=== PATIENT | male | born 1955 | race Caucasian/White ===

== ENCOUNTER → 2017-02-27 | Outpatient (CLI) | payer BC ==
--- NOTE | 2017-02-27 11:51 | PN ---
DATE OF SERVICE: 02/27/17 61 -year-old gentleman has been followed in the sleep center for treatment of severe obstructive sleep apnea/hypopnea syndrome. Apnea/ hypopnea index by results of previous study 2.9. He is on treatment with CPAP at 12 cm water. He is using equipment every night for the whole night. According to the patient he does not snore and does not have sleepiness during the day. [place] sleep scale is 4. I checked the patients CPAP unit. It showed that the patient uses it every night, 30 out of 30 nights more than 4 hours. Average usage is 8.5 hours. Then I could see for at least six months. I could see that for one year period over time. Unfortunately machine does not show me apnea/hypopnea index while the patient using CPAP equipment. Medications are: 1. Atenolol. 2. Synthroid. 3. Lipitor. 4. Xanax on a prn basis. 5. Prevacid. 6. Cozaar. 7. AndroGel. PHYSICAL EXAM: GENERAL: A pleasant patient without any distress. VITAL SIGNS: BP 130/66, HR 50, RR 16, height 5 feet 9 inches, weight 231, body mass index 34.1. neck 19 inches in circumference. Temp 97.4, oxygen saturation on room air 96%. HEENT: PERRLA, EOMI. Evaluation of oropharynx shows extremely low position of soft palate. Tongue protrudes midline. NECK: Supple. No JVD. Thyroid is not palpable. LUNGS: Clear to auscultation and percussion. Good air exchange. No wheezing or rhonchi. HEART: S1, S2 regular. No murmurs, gallops or rubs. ABDOMEN: Soft, obese. Nontender. Bowel sounds are present. No organomegaly appreciated. Small scar on the anterior part of the side of the chest after lung surgery. EXTREMITIES: No clubbing or cyanosis. COIL SPRING ASSEMBLER: Awake, alert and oriented times three. Cranial nerves 2 to 7 intact. There is no fasciculation or atrophy noted. No focal deficits observed. IMPRESSION: 1. Severe obstructive sleep apnea/hypopnea syndrome. The patient demonstrated 100% compliance with treatment benefitting from treatment. 2. Obesity, BMI 34.1. The patient lost weight since previous visit around 14 pounds. 3. Hypertension. 4. Hypothyroidism. 5. Acid reflux. 6. History of depression. 7. History of right lung CA treated surgically about five years ago. PLAN: 1. The patient will continue to use CPAP equipment every night for the whole night. 2. We will try to get a new CPAP unit which will show apnea/hypopnea index. The patient is a airplane pilot commercial. 3. Continue losing weight. 4. Sleep hygiene with regular time in bed for at least 7 hours. 5. No driving if patient feels any sleepiness. The patient is aware of civil and criminal liability for unsafe driving. 6. Prescription for all necessary CPAP supplies including mask, tubes, filters. Thank you very much for allowing me to participate in the management of your patient. Sincerely, Seth French MD, PhD, FAASM Diplomat of [employer]. Sleep Medicine Board by [employer] Shipbuilding Draftsperson [facility]
== END ==
LOC: SLEEP 10:16
PROVIDERS: ATTEND Internal Medicine
DX: G47.33 Obstructive sleep apnea (adult) (pediatric) (principal); E66.9 Obesity, unspecified; E03.9 Hypothyroidism, unspecified; I10 Essential (primary) hypertension; K21.9 Gastro-esophageal reflux disease without esophagitis; F32.9 Major depressive disorder, single episode, unspecified; Z68.34 Body mass index [BMI] 34.0-34.9, adult; Z79.899 Other long term (current) drug therapy

== ENCOUNTER → 2020-11-14 | Outpatient (CLI) | payer BC ==
[2020-11-15 01:54] LABS: Albumin 4.3 g/dL (3.80-4.90)
[2020-11-15 02:03] LABS: Estradiol 23.6 pg/mL; Follicle Stimulating Hormone 21.2 mIU/mL; Luteinizing Hormone 22.5 mIU/mL; T4, Free (Free Thyroxine) 1.3 ng/dL (0.80-1.80)
== END | disposition home or self-care (01) ==
LOC: LABWHC1 08:51
PROVIDERS: ATTEND Urology
DX: R97.20 Elevated prostate specific antigen [PSA] (principal)
CPT/HCPCS: 36415; 82040; 82670; 82947; 83001; 83002; 84146; 84153; 84270; 84403; 84439; 84443; 84479

== ENCOUNTER → 2021-09-27 | Outpatient (CLI) | payer BC | END | disposition home or self-care (01) | LOC: LABWHC1 10:31 | DX: Z53.9 Procedure and treatment not carried out, unspecified reason (principal) ==

== ENCOUNTER → 2022-12-10 | Outpatient (CLI) | payer MEDICARE ==
--- NOTE | 2022-12-11 09:28 | CT ---
CT CHEST FOR PULMONARY EMBOLISM. EXAMINATION TYPE: CT angio chest DATE OF EXAM: 12/10/2022 INDICATION: High blood pressure, assess aorta CT DLP: 1124.1 mGycm, Automated exposure control for dose reduction was used. CONTRAST: Patient injected with 80 cc mL of Isovue 370. COMPARISON: None TECHNIQUE: CT of the chest is performed on a spiral scan at 2 mm thick sections. Study is performed with intravenous contrast timed for evaluation for thoracic aorta. This may limit additional portions of the evaluation. Study is performed without and with intravenous contrast. FINDINGS: There is a three-vessel arch. The aorta at the aortic root is 3.2 cm. The ascending thoracic aorta a t the level of the main pulmonary artery is 3.4 cm. Main pulmonary artery the bifurcation is 3.2 cm. Transverse dimension of the aortic arch is 2.7 cm. Descending thoracic aorta at the diaphragm 2.7 cm. No aneurysm or dissection is evident. The renal arteries and superior mesenteric artery and celiac a xis appear patent. There is vascular calcification present. Coronary artery calcification is present. No mediastinal or hilar adenopathy enlarged by CT criteria is evident. There is a large consolidation in the anterior right upper lobe. Correlate for pneumonia. Underlying mass is not excluded and follow-up is recommended. Limited CT section through the upper abdomen are unremarkable. IMPRESSIONS: 1. No aortic dissection or aneurysm. 2. Anterior right upper lobe infiltrate or fibrosis. Underlying mass is not excluded. Follow-up is re commended. 2. Vascular calcification including coronary vessels.
== END | disposition home or self-care (01) ==
LOC: RADCTMAIN 13:28
PROVIDERS: ATTEND Internal Medicine Interventional Cardiology
DX: I25.10 Atherosclerotic heart disease of native coronary artery without angina pectoris (principal)
CPT/HCPCS: 82565; 84520; 71275; 36415; Q9967

== ENCOUNTER → 2023-05-09 | Outpatient (CLI) | payer MEDICARE ==
--- NOTE | 2023-05-09 09:29 | CT ---
EXAMINATION TYPE: CT chest w con CT DLP: 558.9 mGycm, Automated exposure control for dose reduction was used. DATE OF EXAM: 05/09/2023 8:28 AM COMPARISON: 12/10/2022. CLINICAL INDICATION:Male, 67 years old with history of R91.8 Abn finding of lung field; PHH, Abnormal findings on lung field, hx lung ca TECHNIQUE: Multiple axial images were obtained through the chest. Sagittal and coronal reformats were created for review. Contrast used:100 mL of Isovue 300 with IV Contrast (None if empty) Oral contrast used: (None if empty) FINDINGS: LUNGS/ PLEURA: Worsening interstitial opacities within the anterior lung of the right middle lobe wit h suspected removal of the right upper lobe. Trace bilateral pleural effusions right greater than lef t. AIRWAY: Patent and unremarkable. HEART: Size within normal limits. Moderate to severe atherosclerotic arterial vasculature. MEDIASTINUM: No gross evidence of adenopathy. VASCULATURE: No aortic aneurysm. There is narrowing of the history of vena cava with a slitlike appe arance. MUSCULOSKELETAL: No acute osseous abnormalities SOFT TISSUES/LYMPH NODES: Unremarkable. LOWER NECK: No significant findings. UPPER ABDOMEN: No significant findings. IMPRESSION: 1. Worsening interstitial opacities within the right middle lobe with surgically absent right upper lung. Correlate for infectious/inflammatory process. Underlying mass remains not entirely excluded ho wever felt to be less likely since there is no focal consolidation in this region. 2. Narrowing of the superior vena cava with slitlike appearance. No adjacent mass identified. Relate d with patient's volume status. 3. Mild coronary atherosclerosis which is severe.
== END | disposition home or self-care (01) ==
LOC: RADCTMAIN 07:53
PROVIDERS: ATTEND Family Medicine
DX: I25.10 Atherosclerotic heart disease of native coronary artery without angina pectoris (principal); R91.8 Other nonspecific abnormal finding of lung field
CPT/HCPCS: 71260; Q9967

== ENCOUNTER 2023-05-27 05:54 | Day surgery (SDC) | payer MEDICARE ==
[2023-05-22 11:08] VITALS: BMI 30.8
[2023-05-27] MEDS ORDERED: DEXAMETHASONE SOD PHOSPHATE 4 MG/ML 1 ML VIAL IV ONE (06:00)
[2023-05-27] MEDS ORDERED: LACTATED RINGERS 1,000 ML IV SCH (06:00)
[2023-05-27] MEDS ORDERED: ONDANSETRON 4 MG/2 ML VIAL IVP ONE (06:00)
[2023-05-27] MEDS ORDERED: LIDOCAINE 1% (10MG/ML) FOR IV START INTRADERMA PRN (06:00)
[2023-05-27 06:42] VITALS: TEMP 98
[2023-05-27] MEDS ORDERED: LIDOCAINE 1% INJ 10MG/ML (20 ML MDV) ONE (07:00)
[2023-05-27] MEDS ORDERED: fentaNYL (PF) 50 MCG/ML 2 ML AMP ONE (07:00)
[2023-05-27] MEDS ORDERED: PROPOFOL 10 MG/ML 20 ML VIAL IV ONE (07:00)
[2023-05-27] MEDS ORDERED: HYDROmorphone 0.5 MG/0.5 ML SYRINGE IVP PRN (07:00)
[2023-05-27] MEDS ORDERED: MIDAZOLAM 2 MG/2 ML VIAL ONE (07:00)
[2023-05-27] MEDS ORDERED: MIDAZOLAM 2 MG/2 ML VIAL IV PRN (07:00)
--- NOTE | 2023-05-27 07:28 | P.PCN ---
Date of Procedure: 05/27/23 Procedure(s) Performed: Brief history: Patient is a pleasant 67-year-old white male scheduled for an elective upper endoscopy as well as colonoscopy as a part of evaluation of throat irritation/GERD/screening for colon cancer Procedure performed: Esophagogastroduodenoscopy with biopsy Colonoscopy with snare polypectomy Preoperative diagnosis: GERD/throat irritation Screening for colon cancer Anesthesia: MAC Procedure: After informed consent was obtained from the patient was brought into the endoscopy unit and IV sedation was administered by anesthesia under continuous monitoring. Initially upper endoscopy was done. The Olympus GF 160 video endoscope was inserted inserted into the mouth and esophagus intubated without any difficulty and was gradually advanced into the stomach and duodenum and carefully examined. The bulb and second part of the duodenum appeared normal. The scope was then withdrawn into the stomach adequately insufflated with air and upon careful examination the antrum had mild linear areas of erythema consistent with gastritis and biopsies were done from this area. Mucosa of the body, cardia and fundus appeared normal. The scope was then withdrawn into the esophagus. The GE junction was located at 40 cm to the incisors. It appeared regular with no erythema erosions or ulcerations. Biopsies were done from the distal esophagus. Rest of the esophagus appeared normal. Patient tolerated the procedure well. At this time the patient continued to remain sedation. Initial digital rectal examination was normal. Olympus CF 160 video colonoscope was then inserted into the rectum and gradually advanced to the cecum without any difficulty. Careful examination was performed as the scope was gradually being withdrawn. The prep was fair.. The cecum, appeared normal. In the setting colon there was a 5 mm polyp that was removed by snare polypectomy. Rest of the ascending colon, transverse colon, descending colon, sigmoid colon and rectum appeared normal. Retroflexion was performed in the rectum and no lesions were noted. Patient tolerated the procedure well. Impression: 1. Upper endoscopy revealed mild antral gastritis but no episodes of esophagitis 2. Colonoscopy revealed 5 immediately colon polyp status post polypectomy and the rest of the colon appeared normal Recommendations: Findings of this examination were discussed with the patient as well as his family. He was advised to follow with the biopsy results. If the biopsy of the colon polyp serous adenoma he can have a repeat colonoscopy in 5 years.
[2023-05-27 07:59] VITALS: BP 135/79; PULSE 60; RESP 16
== END 2023-05-27 08:26 | disposition home or self-care (01) ==
LOC: ORWHC2ENDO 05:54
PROVIDERS: ATTEND Internal Medicine Gastroenterology
DX: Z12.11 Encounter for screening for malignant neoplasm of colon (principal); K63.5 Polyp of colon; K31.89 Other diseases of stomach and duodenum; K21.9 Gastro-esophageal reflux disease without esophagitis; K29.50 Unspecified chronic gastritis without bleeding; I10 Essential (primary) hypertension; E78.5 Hyperlipidemia, unspecified; G47.33 Obstructive sleep apnea (adult) (pediatric); E03.9 Hypothyroidism, unspecified; F17.210 Nicotine dependence, cigarettes, uncomplicated; Z79.890 Hormone replacement therapy; Z79.899 Other long term (current) drug therapy
CPT/HCPCS: 88305; 88312; 88342; 88341; 45385; 43239; J2250; J2001; J3010; J2704

== ENCOUNTER → 2023-10-22 | Outpatient (CLI) | payer MEDICARE | END | disposition home or self-care (01) | LOC: LABWHC1 12:17 | PROVIDERS: ATTEND Physician Assistant | DX: C61 Malignant neoplasm of prostate (principal) | CPT/HCPCS: 36415; 84153 ==

== ENCOUNTER → 2023-12-17 | Outpatient (CLI) | payer MEDICARE ==
[2023-12-17 09:47] LABS: African American GFR (CKD) 89 (>60 ml/min/1.73 sqM); Blood Urea Nitrogen 19 mg/dL (9-20); Non-African American GFR(CKD) 77 (>60 ml/min/1.73 sqM)
--- NOTE | 2023-12-19 10:48 | CT ---
EXAMINATION TYPE: CT chest w con CT DLP: 660.1 mGycm, Automated exposure control for dose reduction was used. DATE OF EXAM: 12/17/2023 10:28 AM COMPARISON: Chest radiograph from same day. Multiple CTs of the chest with most recent on . CLINICAL INDICATION:Male, 68 years old with history of C34.90 Lung cancer; PHH, FOLLOW UP LUNG CANCER . HX OF LUNG, PROSTATE CANCER AND LOBECTOMY. TECHNIQUE: Multiple axial images were obtained through the chest. Sagittal and coronal reformats were created for review. Contrast used:100ml mL of Isovue 300 with IV Contrast (None if empty) Oral contrast used: (None if empty) FINDINGS: LUNGS/ PLEURA: Moderately pronounced interstitial fibrosis, likely chronic scar from radiation or oth er insult, correlating with history, within the anterior lung of the right middle lobe with suspected removal of the right upper lobe. . Remainder of right lung and entire left lung clear. No pleural effusions. AIRWAY: Patent and unremarkable. HEART: Size within normal limits. Moderately pronounced calcific coronary artery disease MEDIASTINUM: No gross evidence of adenopathy. VASCULATURE: No aortic aneurysm. MUSCULOSKELETAL: No acute osseous abnormalities SOFT TISSUES/LYMPH NODES: Unremarkable. LOWER NECK: No significant findings. UPPER ABDOMEN: No significant findings. IMPRESSION: Posttreatment changes right middle lobe. No findings worrisome for recurrent lung cancer Follow up recommendations for incidental pulmonary nodules, if there are any, are per [place]?vivi Rodriguez er[place] [employer] or [employer]. https://radiopaedia.org/articles/iydwipruuc-[email or web address]?lang=us
== END | disposition home or self-care (01) ==
LOC: RADCTMAIN 09:05
PROVIDERS: ATTEND Internal Medicine Critical Care Medicine
DX: C34.90 Malignant neoplasm of unspecified part of unspecified bronchus or lung (principal); Z85.46 Personal history of malignant neoplasm of prostate; Z90.2 Acquired absence of lung [part of]
CPT/HCPCS: 71260; 82565; 84520

== ENCOUNTER 2024-03-05 12:55 | Inpatient (IN) | payer MEDICARE ==
[~2024-03-05 12:55] MED LIST: ALPRAZolam 0.5 MG TAB ONE; ASPIRIN 81 MG ONE; HEPARIN SODIUM,PORCINE 10,000 UNIT/ML 1 ML VIAL ONE; LIDOCAINE 1% INJ 10MG/ML (20 ML MDV) ONE; MIDAZOLAM 2 MG/2 ML VIAL ONE; SODIUM CHLORIDE 0.9% 1,000 ML BAG ONE
[2024-03-05] MEDS: IOPAMIDOL-370 100ML BTL INJ ONE (12:55)
--- NOTE | 2024-04-09 15:04 | CC ---
CARDIAC CATHETERIZATION REPORT PROCEDURES PERFORMED: 1. Aortogram with runoff. 2. Gradient measurement across the right common iliac artery. 3. Ultrasound-guided access of the right common femoral artery. INDICATION: Intermittent claudication arterial duplex study. COMPLICATIONS: None. LEVEL OF SEDATION: Moderate with sedation length of 18 minutes. PROCEDURE DESCRIPTION: After obtaining an informed consent, the patient was brought to cardiac greens laborer. The right common femoral artery was cannulated using micropuncture technique under ultrasound guidance, the micropuncture wire passed easily, then I placed a 5-[place]izen [place] 11 cm sheath. An aortogram with runoff was performed using a power injection. After that I did a gradient measurement across the right common iliac artery. Selective peripheral angiogram. 1. The aorta is calcified with mild disease only. 2. Common iliac arteries. The right and left common iliac arteries are calcified with otrc-bw-kixyvnmu disease. 3. External iliac arteries appeared to be calcified with jlgn-ti-gcohbewu disease as well. 4. Common femoral arteries. The right common femoral artery is occluded and the extent to the bifurcation of SFA and profunda. The left common femoral artery appeared to have mild disease only. 5. Both SFA appeared to have ypiu-pn-xwwsvaim diffuse disease. 6. The arteries below the knee were well visualized but there is at least 2 vessel runoff below the knee bilaterally. CONCLUSION: 1. Occluded right common femoral artery with occlusion extent to the SFA/profunda bifurcation. 2. Postprocedure management, I would advise the patient to undergo right femoral endarterectomy. MMODL / IJN: [id number] /
== END 2024-03-05 19:30 | disposition home or self-care (01) | DRG 301 ==
LOC: OR 12:55 → 6NMEDSUR 12:56 → OR 19:30
PROVIDERS: ADMIT Internal Medicine Interventional Cardiology; ATTEND Internal Medicine Interventional Cardiology
PROC: B41D1ZZ Fluoroscopy of Aorta and Bilateral Lower Extremity Arteries using Low Osmolar Contrast (ICD-10-PCS; principal; 2024-03-05 12:20)
PROC: B4101ZZ Fluoroscopy of Abdominal Aorta using Low Osmolar Contrast (ICD-10-PCS; principal; 2024-03-05 12:20)
DX: I70.213 Atherosclerosis of native arteries of extremities with intermittent claudication, bilateral legs (principal); I25.10 Atherosclerotic heart disease of native coronary artery without angina pectoris; E78.5 Hyperlipidemia, unspecified; I25.5 Ischemic cardiomyopathy; I70.0 Atherosclerosis of aorta; E66.9 Obesity, unspecified; F17.210 Nicotine dependence, cigarettes, uncomplicated; Z79.82 Long term (current) use of aspirin; I25.2 Old myocardial infarction; Z95.5 Presence of coronary angioplasty implant and graft; Z85.118 Personal history of other malignant neoplasm of bronchus and lung; Z90.2 Acquired absence of lung [part of]; Z79.890 Hormone replacement therapy; Z79.84 Long term (current) use of oral hypoglycemic drugs; Z79.899 Other long term (current) drug therapy; Z85.46 Personal history of malignant neoplasm of prostate
CPT/HCPCS: 36200; 75625; 75716

== ENCOUNTER → 2024-04-05 | Outpatient (CLI) | payer MEDICARE ==
[2024-04-05 21:24] LABS: Basophils # (A) 0.05 X 10*3/uL (0.00-0.10); Basophils % (A) 0.6 %; Eosinophils # (A) 0.16 X 10*3/uL (0.04-0.35); Eosinophils % (A) 1.8 %; HCT 44.7 % (39.6-50.0); HGB 14.8 g/dL (13.0-17.0); Lymphocytes # (A) 1.64 X 10*3/uL (0.90-5.00); Lymphocytes % (A) 18.5 %; MCH 31.7 pg (27.0-32.0); MCHC 33.1 g/dL (32.0-37.0); MCV 95.7 FL (80.0-97.0); Mean Platelet Volume 10.1 FL (9.5-12.2); Monocytes # (A) 0.62 X 10*3/uL (0.20-1.00); NRBC Per 100 WBC 0 X 10*3/uL (0.00-0.01); Neutrophils # (A) 6.37 X 10*3/uL (1.80-7.70); Neutrophils % (A) 71.6 %; Platelet Count 239 X 10*3/uL (140-440); RBC 4.67 X 10*6/uL (4.40-5.60); RDW 13.8 % (11.5-14.5); WBC 8.88 X 10*3/uL (4.50-10.00)
== END | disposition home or self-care (01) ==
LOC: LABPAT 13:02
PROVIDERS: ATTEND Surgery
DX: Z01.818 Encounter for other preprocedural examination (principal)
CPT/HCPCS: 36415; 85025; 86850; 86900; 86901

== ENCOUNTER 2024-04-12 09:36 | Inpatient (IN) | payer MEDICARE ==
[2024-04-12] MEDS ORDERED: LIDOCAINE 1% (10MG/ML) FOR IV START INTRADERMA PRN (09:57)
[2024-04-12] MEDS ORDERED: HYDROmorphone 0.5 MG/0.5 ML SYRINGE IVP PRN (09:57)
[2024-04-12] MEDS ORDERED: droPERidol 5 MG/2 ML VIAL IVP PRN (09:57)
[2024-04-12] MEDS: IV FLUID CONTINUATION 1,000 ML IV ONE ×2 (10:15)
[2024-04-12] MEDS: DEXAMETHASONE SOD PHOSPHATE 4 MG/ML 1 ML VIAL IV ONE (10:24)
[2024-04-12] MEDS: ONDANSETRON 4 MG/2 ML VIAL IVP ONE (10:24)
[2024-04-12] MEDS: LACTATED RINGERS 1,000 ML IV SCH (10:56)
[2024-04-12 11:11] LABS: Glucose,Whole Blood 100 mg/dL (70-110)
[2024-04-12] MEDS ORDERED: fentaNYL (PF) 50 MCG/ML 2 ML AMP ONE (12:49)
[2024-04-12] MEDS ORDERED: ROCURONIUM 10 MG/ML (5 ML VIAL) IV ONE (12:49)
[2024-04-12] MEDS ORDERED: NEOSTIGMINE 1 MG/ML 10 ML VIAL ONE (12:49)
[2024-04-12] MEDS ORDERED: HYDROmorphone (PF) 1 MG/ML ONE (12:49)
[2024-04-12] MEDS ORDERED: KETAMINE HCL IN 0.9 % NACL 50 MG/5 ML SYRINGE ONE (12:49)
[2024-04-12] MEDS ORDERED: LIDOCAINE 1% INJ 10MG/ML (20 ML MDV) ONE (12:49)
[2024-04-12] MEDS ORDERED: PROPOFOL 10 MG/ML 20 ML VIAL IV ONE (12:49)
[2024-04-12] MEDS ORDERED: GLYCOPYRROLATE 0.2 MG/ML 2 ML VIAL ONE (12:49)
[2024-04-12] MEDS ORDERED: PROTAMINE SULFATE 10 MG/ML 5 ML VIAL ONE (12:49)
[2024-04-12] MEDS ORDERED: SUCCINYLCHOLINE CHLORIDE 200 MG/10 ML VIAL IV ONE (12:49)
[2024-04-12] MEDS ORDERED: DEXAMETHASONE SOD PHOSPHATE 10 MG/ML 1 ML VIAL ONE (12:49)
[2024-04-12] MEDS ORDERED: MIDAZOLAM 2 MG/2 ML VIAL ONE (12:49)
[2024-04-12] MEDS: ceFAZolin 2 GM in SODIUM CHLORIDE 0.9% 500 ML 500 ML IRRIGATION ONE (13:23)
[2024-04-12] MEDS: THROMBIN (BOVINE) 5,000 UNIT VIAL TOPICAL ONE (13:23)
[2024-04-12] MEDS: HEPARIN SODIUM,PORCINE 10,000 UNIT in SODIUM CHLORIDE 0.9% 1,000 ML IRRIGATION ONE (13:23)
[2024-04-12] MEDS: LACTATED RINGERS 1,000 ML IV ONE (14:04)
[2024-04-12] MEDS ORDERED: ONDANSETRON 4 MG/2 ML VIAL IVP PRN (15:15)
[2024-04-12] MEDS ORDERED: MORPHINE SULFATE 2 MG/ML SYRINGE IVP PRN (15:15)
[2024-04-12] MEDS ORDERED: HYDROcodone/APAP 5-325MG 1 EACH TAB PO PRN (15:15)
--- NOTE | 2024-04-12 15:24 | P.OP ---
Date of Procedure: 04/12/24 Preoperative Diagnosis: Right common femoral artery occlusion, claudication [place] classification 3 Postoperative Diagnosis: Same Procedure(s) Performed: Right common femoral, profundus femoris and superficial femoral artery endarterectomy with patch angioplasty Anesthesia: BON Surgeon: Servando Rivers Melter Operator #1: Juan Vaughan Estimated Blood Loss (ml): 50 Pathology: other (Femoral plaque) Condition: stable Disposition: PACU Indications for Procedure: 68-year-old gentleman with history of right lower extremity claudication with decreased ABIs less than 0.7 who underwent aortogram with runoff which demonstrated right common femoral artery occlusion. He presents today for femoral endarterectomy and patch angioplasty. Description of Procedure: Operative narrative: After written and informed consent was obtained from the patient all risks benefits and complications were described the patient is brought to the operative suite and laid in a supine position. The area of the abdomen, right lower extremity was prepped and draped in usual sterile fashion after appropriate anesthetic was performed per the anesthesiologist. A timeout was performed in normal fashion. Antibiotics were administered prior to in cision. A oblique incision was created at the right groin and dissection was carried down to the common femoral artery. The common femoral, superficial femoral and profundus femoris arteries were dissected free in a circumferential manner and controlled with vessel loops. Patient was then administered heparin. Arteriotomy was then created with 11 blade scalpel and extended with Pott Varma scissors. Endarterectomy was then performed with [place] of the common femoral, profundus femoris and superficial femoral artery. There was good backbleeding noted from the profundus and superficial femoral artery once endarterectomy was completed. Patch angioplasty was then performed with 6-0 Prolene suture in a running fashion and a bovine pericardial patch. Prior to last sutures being placed backbleeding was once again assessed which was adequate and proximal control was released revealing good pulsatile blood flow. Final sutures were placed and good pulsatile blood flow was noted. The areas were then copiously irrigated with antibiotic solution. The incision was then closed in a multilayer fashion after hemostasis was assured with Gelfoam and thrombin and the skin was then cleansed and dressings were placed. The patient tolerated procedure well and had a palpable PT pulse at the conclusion of the procedure and was sent to PACU for recovery.
[2024-04-12 17:33] VITALS: RESP 18
--- NOTE | 2024-04-12 21:52 | P.CONS ---
History of Present Illness - Reason for Consult Consult date: 04/12/24 Medical management Requesting physician: Servando Rivers - History of Present Illness Patient is a 68-year-old male who has been admitted for an elective right common femoral, profunda femoris and superficial femoral artery endarterectomy with patch angioplasty dont today. He is doing well after the surgery. He mentions having low urine stream due to prostate cancer that he is following up at [facility]. Denies fever, chills, nausea, vomiting, abdominal pain, chest pain, shortness of breath, cough, chest pain, palpitation. Vitals: T97 F, P 71 bpm, RR 18, BP 121/76, O2 sat 98% on room air Review of systems: Pertinent positives and negatives as discussed in HPI, a complete review of systems was performed and all other systems are negative. PMH: Hyperlipidemia, CAD, GERD, Hypothyroidism, Hypertension, Prostate cancer, Lung cancer Physical examination: Vital signs reviewed General: non toxic, no distress, appears at stated age, obese, patient not cooperative and sounds frustrated, asked to keep the interview and exam brief as he wanted to sleep Derm: no unusual rashes/lesions, warm Head: atraumatic, normocephalic, symmetric Eyes: anicteric sclera ENT: Nose and ears atraumatic Mouth: no lip lesion, mucus membranes moist Cardiovascular: S1S2 reg, no murmur Lungs: CTA bilateral, no rhonchi, no rales, no accessory muscle use Ext: no gross muscle atrophy, no contractures, Neuro: CN II-XI grossly intact, no gross focal neuro deficits Psych: Alert, oriented, appropriate affect Assessment/Plan: Patient is a 68-year-old male admitted for endarterectomy and we have been consulted for medical management. #. History of coronary artery disease Continue with aspirin 81 mg p.o. daily, clopidogrel 75 mg p.o. daily, metoprolol 25 mg p.o. at bedtime and empagliflozin 10 mg p.o. daily. #. Hyperlipidemia Continue with 80 mg p.o. at bedtime and ezetimibe 10 mg p.o. every 48 hours #. gastroesophageal reflux disease Continue with lansoprazole 30 mg p.o. daily #. Hypothyroidism Continue with 200 mcg p.o. daily #. Hypertension Continue losartan 100 mg p.o. at bedtime #. severe PAD s/p right common femoral, profunda femoris and superficial femoral artery endarterectomy with patch angioplasty POD # zero management per primary surgical team F:LR at 20 ml/hr E:Replete as required N:Heart healthy diet A:Deferred to surgery DVT prophylaxis: Deferred to surgery Past Medical History Past Medical History: Cancer, GERD/Reflux, Hyperlipidemia, Hypertension, Myocardial Infarction ([place]), Prostate Disorder, Sleep Apnea/CPAP/BIPAP, Thyroid Disorder Additional Past Medical History / Comment(s): lung cancer , cpap, blockage to rt leg, BPH, watching prostate cancer and PSA. Takes jardiance for his heart Last Myocardial Infarction Date:: 1998 History of Any Multi-Drug Resistant Organisms: None Reported Additional Past Surgical History / Comment(s): lobectomy right, colonscopy Past Anesthesia/Blood Transfusion Reactions: No Reported Reaction Additional Past Anesthesia/Blood Transfusion Reaction / Comm: no blood transfusion Smoking Status: Current some day smoker - Past Family History Father Family Medical History: Cancer, Coronary Artery Disease (CAD) Medications and Allergies Home Medications Medication Instructions Recorded Confirmed Type Atorvastatin [Lipitor] 80 mg PO HS 05/22/23 04/12/24 History Ezetimibe [Zetia] 10 mg PO Q48H 05/22/23 04/12/24 History Lansoprazole 30 mg PO DAILY 05/22/23 04/12/24 History Levothyroxine Sodium [Synthroid] 200 mcg PO DAILY 05/22/23 04/12/24 History Losartan [Cozaar] 100 mg PO HS 05/22/23 04/12/24 History Aspirin 81 mg PO DAILY 04/05/24 04/12/24 History Clopidogrel [Plavix] 75 mg PO DAILY 04/05/24 04/05/24 History Empagliflozin [Jardiance] 10 mg PO DAILY 04/05/24 04/12/24 History Ibuprofen [Motrin] 800 mg PO DIRECTED PRN 04/05/24 04/05/24 History Metoprolol Tartrate 25 mg PO HS 04/05/24 04/12/24 History Allergies Allergy/AdvReac Type Severity Reaction Status Date / Time No Known Allergies Allergy Verified 04/12/24 10:17 Physical Exam Vitals: Vital Signs Temp Pulse Pulse Resp BP BP BP 04/12/24 17:30 71 18 121/76 09/30/24 16:44 60 16 129/59 04/12/24 16:29 63 16 121/63 04/12/24 16:04 60 16 149/61 04/12/24 15:49 52 L 16 142/57 04/12/24 15:34 60 16 147/66 04/12/24 15:19 97 F L 100 16 149/66 04/12/24 09:55 97.4 F L 57 L 16 166/78 Pulse Ox 04/12/24 17:30 98 04/12/24 16:44 97 04/12/24 16:29 97 04/12/24 16:04 97 04/12/24 15:49 97 04/12/24 15:34 98 04/12/24 15:19 98 04/12/24 09:55 96 Intake and Output 04/12/24 04/12/24 04/12/24 06:59 14:59 22:59 Intake Total 1853 954 Output Total 400 250 Balance 1453 704 Intake: IV 1853 600 Oral 354 Output: Urine 350 250 Estimated Blood Loss 50 Other: Weight 102.5 kg Assessment and Plan Assessment: I have seen and evaluated the patient today. I Discussed the case with the resident and agree with the resident's findings I edited the assessment and plan as necessary as documented in the resident's note.
[2024-04-12] MEDS: EZETIMIBE 10 MG TAB PO SCH (22:25)
[2024-04-13 05:00] VITALS: TEMP 98.1
[2024-04-13] MEDS: LEVOTHYROXINE 100 MCG TAB PO SCH (06:28)
[2024-04-13] MEDS: PANTOPRAZOLE 40 MG TABLET PO SCH (06:28)
[2024-04-13 08:17] LABS: Basophils % (A) 0 %; Eosinophils # (A) 0.1 k/uL (0-0.7); Eosinophils % (A) 1 %; HGB 13.9 gm/dL (13.0-17.5); Lymphocytes # (A) 1.5 k/uL (1.0-4.8); Lymphocytes % (A) 10 %; MCH 32.1 pg (25.0-35.0); MCHC 33.1 g/dL (31.0-37.0); MCV 97.2 fL (80.0-100.0); Mean Platelet Volume 7.2; Monocytes # (A) 0.7 k/uL (0-1.0); Monocytes % (A) 5 %; Neutrophils # (A) 12.8 k/uL (1.3-7.7); Neutrophils % (A) 84 %; Platelet Count 239 k/uL (150-450); RBC 4.33 m/uL (4.30-5.90); RDW 13.6 % (11.5-15.5); WBC 15.3 k/uL (3.8-10.6)
[2024-04-13 08:29] LABS: African American GFR (CKD) 85 (>60 ml/min/1.73 sqM); Anion Gap 10 mmol/L; Blood Urea Nitrogen 18 mg/dL (9-20); Calcium 9.5 mg/dL (8.4-10.2); Carbon Dioxide 21 mmol/L (22-30); Chloride 108 mmol/L (98-107); Glucose 133 mg/dL (74-99); Non-African American GFR(CKD) 73 (>60 ml/min/1.73 sqM); Potassium 3.9 mmol/L (3.5-5.1); Sodium 139 mmol/L (137-145)
[2024-04-13] MEDS: CLOPIDOGREL 75 MG TAB PO SCH (08:59)
[2024-04-13] MEDS: ASPIRIN 81 MG PO SCH (08:59)
[2024-04-13] MEDS: DAPAGLIFLOZIN PROPANEDIOL 10 MG TABLET PO SCH (08:59)
--- NOTE | 2024-04-13 10:13 | P.DS ---
Providers Date of admission: 04/12/24 09:36 Expected date of discharge: 04/13/24 Attending physician: Servando Rivers DO Consults: 04/12/24 15:15 Consult Physician Routine Consulting Provider: Joshua Rojas Consult Reason/Comments: medical management Do you want consulting provider notified?: Yes Primary care physician: Denise Bassett MD Hospital Course: This is a pleasant 68-year-old male who was scheduled for elective outpatient revascularization. He is postop day #1 for right common femoral, profunda femoris and SFA endarterectomy with patch angioplasty. He is been up to the side of the bed, voiding without difficulty, and ambulating in the hallways. Pain is improved in the left lower extremity. No acute changes through the night. Patient has been afebrile with stable vital signs. Labs are unremarkable. Plan for discharge today. Discharge instructions reviewed with patient. Will go home with Pravena dressing to the right groin for 6 days. Exam General appearance: The patient is alert, oriented, appears in no acute distress. HET: Head is normocephalic and atraumatic. Pupils are equal and reactive. Neck: Supple. Heart: Regular. Lungs: Equal expansion, normal respiratory effort. Abdomen: Soft, nondistended. Extremities: Normal skin color and turgor. Right groin with Louise dressing in place with good suction. Bilateral lower extremities warm to the touch, left faint palpable PT and DP pulse. Neurological: No focal deficits. Strength and sensation are grossly intact. Assessment 1. 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 Claudication [place] classification 3 3. History of tobacco use Plan 1. Encourage ambulation 2. Keep Prevena dressing in place to right groin for 6 days 3. Smoking cessation 4. Continue current medications 5. Plan for discharge today with follow-up in 2 weeks The impression and plan of care has been dictated as directed. I performed a history and examination of this patient, discussed the same with the dictator. I agree with the dictator's note ,documented as a scribe. Any additional findings or plans will be noted. Procedures: Right common femoral, profundus femoris and superficial femoral artery endarterectomy with patch angioplasty Patient Condition at Discharge: Stable Plan - Discharge Summary Discharge Rx Participant: Yes New Discharge Prescriptions: Continue Losartan [Cozaar] 100 mg PO HS Lansoprazole 30 mg PO DAILY Aspirin 81 mg PO DAILY Ezetimibe [Zetia] 10 mg PO Q48H Atorvastatin [Lipitor] 80 mg PO HS Clopidogrel [Plavix] 75 mg PO DAILY Metoprolol Tartrate 25 mg PO HS Ibuprofen [Motrin] 800 mg PO DIRECTED PRN PRN Reason: Pain No Action Empagliflozin [Jardiance] 10 mg PO DAILY Levothyroxine Sodium [Synthroid] 200 mcg PO DAILY Discharge Medication List Atorvastatin [Lipitor] 80 mg PO HS 05/22/23 [History] Ezetimibe [Zetia] 10 mg PO Q48H 05/22/23 [History] Lansoprazole 30 mg PO DAILY 05/22/23 [History] Levothyroxine Sodium [Synthroid] 200 mcg PO DAILY 05/22/23 [History] Losartan [Cozaar] 100 mg PO HS 05/22/23 [History] Aspirin 81 mg PO DAILY 04/05/24 [History] Clopidogrel [Plavix] 75 mg PO DAILY 04/05/24 [History] Empagliflozin [Jardiance] 10 mg PO DAILY 04/05/24 [History] Ibuprofen [Motrin] 800 mg PO DIRECTED PRN 04/05/24 [History] Metoprolol Tartrate 25 mg PO HS 04/05/24 [History] Follow up Appointment(s)/Referral(s): Servando Rivers DO [STAFF PHYSICIAN] - 2 Weeks Denise Bassett MD [Primary Care Provider] - 1 Week Activity/Diet/Wound Care/Special Instructions: No driving for two weeks Avoid heavy lifting greater than 10 lbs , pushing, pulling, straining, flights of stairs for two weeks ok to shower tomorrow but no baths, pools, soaking in tubs to avoid risk of infection. signs of infection ie: fever, rash, drainage from incision site, swelling contact doctor or return to ER immediately. Heavy bleeding from incision site apply firm direct pressure and return to ER. Do not attempt to drive self. low sodium/low fat diet Smoking cessation Keep Louise dressing in place for 6 more days, may remove on 04/18/24 Discharge Disposition: HOME SELF-CARE
[2024-04-13 10:41] VITALS: BP 143/77; PULSE 76
--- NOTE | 2024-04-13 12:13 | P.PN ---
Progress Note - Text Progress Note Date: 04/13/24 Saw the patient today. I reviewed her vital signs and blood work. Everything is stable. Patient is stable for discharge from medical standpoint. Discharge medication reconciliation completed.
[2024-04-13] MEDS ORDERED: LOSARTAN 50 MG TAB PO SCH (21:00)
[2024-04-13] MEDS ORDERED: ATORVASTATIN 80 MG TAB PO SCH (21:00)
[2024-04-13] MEDS ORDERED: METOPROLOL TARTRATE 25 MG TAB PO SCH (21:00)
== END 2024-04-13 11:55 | disposition home or self-care (01) | DRG 254 ==
LOC: 2ORMAIN 09:36 → 3SCARD 16:12
PROVIDERS: ADMIT Surgery; ATTEND Surgery
PROC: 04UK0KZ Supplement Right Femoral Artery with Nonautologous Tissue Substitute, Open Approach (ICD-10-PCS; principal; 2024-04-12 11:30)
PROC: 04CK0ZZ Extirpation of Matter from Right Femoral Artery, Open Approach (ICD-10-PCS; principal; 2024-04-12 11:30)
DX: I70.211 Atherosclerosis of native arteries of extremities with intermittent claudication, right leg (principal); Z87.891 Personal history of nicotine dependence; I27.20 Pulmonary hypertension, unspecified; G47.30 Sleep apnea, unspecified; I08.3 Combined rheumatic disorders of mitral, aortic and tricuspid valves; I25.10 Atherosclerotic heart disease of native coronary artery without angina pectoris; Z95.5 Presence of coronary angioplasty implant and graft; I25.2 Old myocardial infarction; E03.9 Hypothyroidism, unspecified; E78.5 Hyperlipidemia, unspecified; I10 Essential (primary) hypertension; K21.9 Gastro-esophageal reflux disease without esophagitis; N40.0 Benign prostatic hyperplasia without lower urinary tract symptoms; Z79.02 Long term (current) use of antithrombotics/antiplatelets; Z79.82 Long term (current) use of aspirin; Z79.84 Long term (current) use of oral hypoglycemic drugs; Z79.890 Hormone replacement therapy; Z79.899 Other long term (current) drug therapy; Z85.118 Personal history of other malignant neoplasm of bronchus and lung; Z85.46 Personal history of malignant neoplasm of prostate
CPT/HCPCS: 80048; 85025; 88304; 88311

== ENCOUNTER → 2024-11-29 | Outpatient (CLI) | payer MEDICARE ==
--- NOTE | 2024-11-29 16:11 | CTL ---
EXAMINATION TYPE: CT Low Dose Lung DATE OF EXAM: 11/29/2024 8:51 AM COMPARISON: 12/17/2023 CLINICAL INDICATION: Male, 69 years old with history of Z12.2 ENCNTR SCREEN FO F17.210 NICOTINE DEPEN DENCE, Current smoker, 1/2 ppd x 40 years, History of tobacco use. TECHNIQUE: Low dose computed tomography scan was performed through the chest at 1 mm thick sections a nd reconstructed images in multiple planes at 1 mm and [address] DLP: 91 mGycm, CT CTDI: 3.1 mGy, Automated exposure control for dose reduction was used. CT DIAGNOSTIC QUALITY: Satisfactory FINDINGS: Heart normal size with trace anterior basilar pericardial fluid. Extensive three-vessel coronary rayne ry calcifications are present. 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 Mild atherosclerotic arch calcifications with conventional arch vessel branching anatomy. Mildly enlarged caliber main right and left pulmonary arteries up to 2.7 cm suggest underlying pulmon néstor hypertension. No thoracic lymphadenopathy by CT size criteria. Postsurgical change of right upper lobectomy. There is volume loss, architectural distortion, groundglass change within the right middle lobe, over all unchanged in appearance. Some mild anterior lung herniation through the second intercostal space here remains unchanged. Some small nodular densities along the lateral margin of the groundglass chris uring up to 6 mm remains unchanged as well. Numerous scattered 4 mm and smaller pulmonary nodules, many of which represent calcified granulomas r emain unchanged. Tiny hiatal hernia. Visualized upper abdomen shows no gross abnormalities. Bones: DISH mid and lower thoracic spine. IMPRESSION: 1. LungRADS 2, benign; status post right upper lobectomy and chronic right middle lobe volume loss, d istortion, and groundglass change. Scattered 6 mm and smaller pulmonary nodules remain unchanged. 2. COPD with moderate emphysema and possible pulmonary arterial hypertension. Recommend smoking cessa tion. 3. Extensive three-vessel coronary artery calcifications. 4. Mild aneurysm ascending aorta 4.2 cm versus 3.9 cm, previously. Attention on follow-up. CT LUNG RAD AND CT CHEST RECOMMENDATION: Lung-Rad 2 Benign Appearance or Behavior: Continue annual sc reening with LDCT in 12 months. S Modifier (other clinically significant findings): S, follow-up as clinically indicated mild ascendi ng aortic aneurysm at 4.2 cm. [facility], Workstation: [id number] 11/29/2024 4:08 PM
== END | disposition home or self-care (01) ==
LOC: RADCTMAIN 08:32
PROVIDERS: ATTEND Internal Medicine Critical Care Medicine
DX: Z12.2 Encounter for screening for malignant neoplasm of respiratory organs (principal); F17.210 Nicotine dependence, cigarettes, uncomplicated; Z90.2 Acquired absence of lung [part of]; J44.9 Chronic obstructive pulmonary disease, unspecified; J43.9 Emphysema, unspecified; I25.10 Atherosclerotic heart disease of native coronary artery without angina pectoris; I70.0 Atherosclerosis of aorta
CPT/HCPCS: 71271